=== PATIENT | female | born 1950 | race Caucasian/White ===

== ENCOUNTER 2023-07-14 22:54 | Emergency (ER) | payer OTHER ==
[~2023-07-14] VITALS: Ht 160 cm; Wt 79.4 kg
[2023-07-14 22:57] VITALS: BP_SYST 168; PULSE 62; RESP 16; TEMP 96.8; O2SAT 90
[2023-07-14] MEDS ORDERED: HYDR25TA4 PO (23:08)
[2023-07-14] MEDS ORDERED: MULT1CAP34 PO (23:08)
[2023-07-14] MEDS ORDERED: LOSA50TA28 PO (23:08)
[2023-07-14] MEDS ORDERED: GLIP10TA21 PO (23:08)
[2023-07-14] MEDS ORDERED: CHOL200026 PO (23:08)
[2023-07-14] MEDS ORDERED: FURO20TA4 PO (23:08)
[2023-07-14] MEDS ORDERED: FERR-57 PO (23:08)
[2023-07-14] MEDS ORDERED: EMPA25TA PO (23:08)
[2023-07-14] MEDS ORDERED: EZET10TA30 PO (23:08)
[2023-07-14] MEDS ORDERED: ASPI81CA PO (23:09)
[2023-07-14] MEDS ORDERED: CA C1TAB92 PO (23:09)
[2023-07-14] MEDS ORDERED: ATOR40TA68 PO (23:09)
[2023-07-14] MEDS ORDERED: POTA10CA68 PO (23:09)
[2023-07-15] MEDS: NACL 0.9% 1,000 ML IV ONE (00:25)
[2023-07-15] MEDS: MORPHINE 4 MG INJ. 4 MG/ML VIAL IVP ONE (00:27)
[2023-07-15] MEDS: ONDANSETRON HCL 4 MG/2 ML VIAL IVP ONE (00:27)
[2023-07-15 00:45] LABS: BASOPHILS # (AUTO) 0.1 K/uL (0.0-0.2); BASOPHILS % (AUTO) 0.4 % (0.0-2.0); BILIRUBIN,URINE NEGATIVE (NEGATIVE); BLOOD, URINE NEGATIVE (NEGATIVE); CLARITY/URINE CLEAR (CLEAR); COLOR,URINE YELLOW (YELLOW); EOSINOPHILS # (AUTO) 0.1 K/uL (0.0-0.4); EOSINOPHILS % (AUTO) 1.1 % (0.0-4.0); GLUCOSE,URINE 3+ (NEGATIVE); HEMATOCRIT 44.4 % (36-48); KETONES,URINE NEGATIVE (NEGATIVE); LEUKOCYTE ESTERASE ,URINE NEGATIVE (NEGATIVE); LYMPHOCYTES # (AUTO) 1.4 K/uL (1.0-5.5); LYMPHOCYTES % (AUTO) 11.1 % (20.5-51.5); MEAN CORPUSCULAR HEMOGLOBIN 31 pg (27-31); MEAN CORPUSCULAR HGB CONC 34 % (32-36); MEAN CORPUSCULAR VOLUME 91 fL (79.0-98.0); MONOCYTES # (AUTO) 0.8 K/uL (0.0-1.0); MONOCYTES % (AUTO) 6.7 % (1.7-9.3); NEUTROPHILS # (AUTO) 10.1 K/uL (1.8-7.7); NEUTROPHILS % (AUTO) 80.7 % (40.0-70.0); NITRITE, URINE NEGATIVE (NEGATIVE); PH,URINE 5.5 (5.0-8.0); PLATELET COUNT (AUTO) 209 K/uL (130-430); PROTEIN URINE NEGATIVE (NEGATIVE); RED BLOOD CELL COUNT(AUTO) 4.85 MIL/uL (4.2-6.2); RED CELL DISTRIBUTION WIDTH 13.1 % (9.0-15.0); UROBILINOGEN,URINE 0.2 (0.2-1.0); WHITE BLOOD COUNT (AUTO) 12.5 K/uL (4.8-10.8)
[2023-07-15 00:58] LABS: ANION GAP 12 (5-15); CALCIUM 9.3 mg/dL (8.4-11.0); CARBON DIOXIDE 28 mmol/L (23-29); CHLORIDE 102 mmol/L (98-107); CREATININE 0.84 mg/dL (0.55-1.30); GFR AFRICAN AMERICAN 86 mL/min (>90); GFR NON AFRICAN-AMERICAN 71 mL/min (>90); GLUCOSE 255 mg/dL (74-106); POTASSIUM 3.5 mmol/L (3.5-5.1); SODIUM SERUM 142 mmol/L (136-145); UREA NITROGEN, BLOOD 21 mg/dL (8-21)
[2023-07-15 01:05] LABS: ALANINE AMINOTRANSFERASE 16 U/L (12-78); ALBUMIN 3.8 g/dL (3.4-4.8); ASPARTATE AMINOTRANSFERASE 22 U/L (10-37); BILIRUBIN,DIRECT 0.2 mg/dL (0.0-0.3); LIPASE 37 U/L (16-77); TOTAL BILIRUBIN 1.2 mg/dL (0.0-1.0); TOTAL PROTEIN, SERUM 7.4 g/dL (6.4-8.3)
[2023-07-15] MEDS ORDERED: ALBUTEROL SULFATE 0.083% 2.5 MG/3 ML VIAL.NEB INH ONE (03:30)
[2023-07-15] MEDS ORDERED: FUROSEMIDE 40 MG/4 ML VIAL IVP ONE (03:30)
[2023-07-15] MEDS ORDERED: IPRATROPIUM BROM 0.5 MG/2.5 ML VIAL.NEB (ATROVENT) INH ONE (03:30)
[2023-07-15] MEDS ORDERED: ONDA-8 TL (03:33)
[2023-07-15 03:44] VITALS: BP_SYST 141; PULSE 80; RESP 18; TEMP 98.4; O2SAT 91
== END 2023-07-15 03:44 | disposition home or self-care (01) ==
LOC: SED 22:54
DX: K80.50 Calculus of bile duct without cholangitis or cholecystitis without obstruction (principal); K80.20 Calculus of gallbladder without cholecystitis without obstruction; D72.829 Elevated white blood cell count, unspecified; R11.2 Nausea with vomiting, unspecified; Z79.899 Other long term (current) drug therapy
CPT/HCPCS: 99285; 80076; 80048; 81001; 83690; 85025; 84484; 36415; 81003; 74177; 96374; 76705; 96361; 96375; J2405; J2270; Q9967; J7030; J1940